=== PATIENT | male | born 1980 | race Two or more races ===

== ENCOUNTER 2018-07-30 23:52 | Emergency (ER) | payer SELFPAY ==
[~2018-07-30] VITALS: Ht 170.2 cm; Wt 79.4 kg
[2018-07-31 00:52] VITALS: BP 130/77
--- NOTE | 2018-07-31 02:10 | NUR ---
CALLED TO RM, NO ANSWER.
--- NOTE | 2018-07-31 02:18 | NUR ---
2nd call for pt to rm, no answer.
--- NOTE | 2018-07-31 02:24 | NUR ---
3RD CALL FOR PT, NO RESPONSE. LWBS.
== END 2018-07-31 02:25 | disposition left against medical advice (07) ==
LOC: ER 23:55
DX: Z53.21 Procedure and treatment not carried out due to patient leaving prior to being seen by health care provider (principal); R10.9 Unspecified abdominal pain

== ENCOUNTER 2018-08-02 14:00 | Emergency (ER) | payer SELFPAY ==
[~2018-08-02] VITALS: Ht 170.2 cm; Wt 72.6 kg
[2018-08-02] MEDS ORDERED: HYDROMORPHONE 1 MG/1 ML DISP.SYRIN ONE ×3 (14:20→15:46)
--- NOTE | 2018-08-02 14:20 | NUR ---
C/O FLANK PAIN SINCE SATURDAY AND WORSE TODAY. PAIN IS SHARP ON RIGHT SIDE, 10/10. UNCOMFORTABLE IN ALL POSITIONS; SITTING, STANDING, LAYING. UNABLE TO URINATE AT THIS TIME. NO ACUTE DISTRESS NOTED. ER BED 12, PROVIDED WARM BLANKET, READY FOR EVAL.
[2018-08-02] MEDS ORDERED: ONDANSETRON HCL/PF 4 MG/2 ML VIAL ONE (14:21)
[2018-08-02] MEDS ORDERED: HYDROMORPHONE INJ 2 MG/ML DISP.SYRIN IV ONE ×3 (14:30→16:00)
[2018-08-02] MEDS ORDERED: ONDANSETRON HCL/PF 4 MG/2 ML VIAL IVP ONE (14:30)
[2018-08-02] MEDS ORDERED: IV NS 0.9% 1,000 ML BAG IV ONE (14:30)
[2018-08-02 14:36] LABS: BASOPHILS # (AUTO) 0.1 /CMM (0.0-0.2); BASOPHILS % (AUTO) 0.5 % (0.0-2.0); EOSINOPHILS % (AUTO) 0.7 % (0.0-6.0); HEMATOCRIT 42 % (39-51); HEMOGLOBIN 13.9 g/dL (13.5-17.5); LYMPHOCYTES # (AUTO) 1.8 /CMM (0.8-4.8); LYMPHOCYTES % (AUTO) 15.5 % (20.0-44.0); MEAN CORPUSCULAR HGB CONC 33 g/dl (31.0-36.0); MEAN CORPUSCULAR VOLUME 89 fL (80-96); MONOCYTES % (AUTO) 8.6 % (2.0-12.0); NEUTROPHILS # (AUTO) 8.8 /CMM (1.8-8.9); NEUTROPHILS % (AUTO) 74.7 % (43.0-81.0); PLATELET COUNT (AUTO) 229 /CMM (150-450); RED BLOOD CELL COUNT(AUTO) 4.71 MIL/uL (4.5-6.0); WHITE BLOOD COUNT (AUTO) 11.8 K/uL (4.3-11.0)
--- NOTE | 2018-08-02 14:38 | NUR ---
PT UNABLE TO PROVIDE URINE SAMPLE AT THIS TIME
[2018-08-02 14:52] LABS: CREATININE 1.1 mg/dL (0.6-1.3); POTASSIUM 4.5 mmol/L (3.5-5.1)
[2018-08-02 15:05] LABS: ALBUMIN 3.5 g/dL (3.4-5.0); BILIRUBIN,DIRECT 0.1 mg/dL (0.0-0.2); BILIRUBIN,TOTAL 0.3 mg/dL (0.2-1.0); TOTAL PROTEIN, SERUM 7.9 g/dL (6.4-8.2)
[2018-08-02] MEDS ORDERED: KETOROLAC TROMETHAMINE INJ 30 MG/ML VIAL ONE (15:10)
[2018-08-02] MEDS ORDERED: KETOROLAC TROMETHAMINE INJ 30 MG/ML VIAL IV ONE (15:30)
--- NOTE | 2018-08-02 15:57 | NUR ---
IV removed. Catheter intact and site benign. Pressure and 4x4 applied to site. No bleeding noted.Patient discharged to home in stable condition. Written and verbal after care instructions given. Patient verbalizes understanding of instruction.
[2018-08-02 15:58] VITALS: BP 159/66
== END 2018-08-02 15:59 | disposition home or self-care (01) ==
LOC: ER 14:03
DX: N20.0 Calculus of kidney (principal)
CPT/HCPCS: 36415; 74176; 80048; 80076; 83690; 85025; 96374; 96375; 96376; 99284; J1170 ×3; J1885; J2405; J7030